=== PATIENT | male | born 1980 | race African-American/Black ===

== ENCOUNTER 2018-02-11 11:03 | Day surgery (SDC) | payer OTHER ==
[2018-02-03 10:23] LABS: HEMATOCRIT 37.6 % (37.9-51.0); MEAN CORPUSCULAR HEMOGLOBIN 27.2 pg (27.0-33.4); MEAN CORPUSCULAR HGB CONC 31.9 g/dL (32.0-36.0); MEAN CORPUSCULAR VOLUME 85 fl (80-97); PLATELET COUNT 214 10^3/uL (150-450); RED CELL DISTRIBUTION WIDTH 15.2 % (11.5-14.0); WHITE BLOOD COUNT 5.2 10^3/uL (4.0-10.5)
[2018-02-03 10:40] LABS: APPEARANCE,URINE CLEAR; BILIRUBIN,URINE NEGATIVE (NEGATIVE); COLOR,URINE YELLOW; GLUCOSE, URINE NEGATIVE (NEGATIVE); KETONES,URINE NEGATIVE (NEGATIVE); LEUKOCYTE ESTERASE,URINE NEGATIVE (NEGATIVE); NITRITE,URINE NEGATIVE (NEGATIVE); PROTEIN,URINE NEGATIVE (NEGATIVE); URINE SPECIFIC GRAVITY 1.019
[2018-02-03 10:41] LABS: ANION GAP 11 (5-19); BLOOD UREA NITROGEN 20 mg/dL (7-20); CALCIUM 9.6 mg/dL (8.4-10.2); CARBON DIOXIDE 29 mmol/L (22-30); CHLORIDE 105 mmol/L (98-107); GLUCOSE 153 mg/dL (75-110); POTASSIUM 4.5 mmol/L (3.6-5.0); SODIUM 144.6 mmol/L (137-145)
--- NOTE | 2018-02-03 10:45 | RADIOLOGY REPORT (SQ) ---
EXAM DESCRIPTION: CHEST PA/LATERAL COMPLETED DATE/TIME: 02/03/2018 9:51 am REASON FOR STUDY: PRE OP COMPARISON: None. EXAM PARAMETERS: NUMBER OF VIEWS: two views TECHNIQUE: Digital Frontal and Lateral radiographic views of the chest acquired. RADIATION DOSE: NA LIMITATIONS: none FINDINGS: LUNGS AND PLEURA: No opacities, masses or pneumothorax. No pleural effusion. MEDIASTINUM AND HILAR STRUCTURES: No masses or contour abnormalities. HEART AND VASCULAR STRUCTURES: Heart normal size. No evidence for failure. BONES: No acute findings. HARDWARE: None in the chest. OTHER: No other significant finding. IMPRESSION: NO SIGNIFICANT RADIOGRAPHIC FINDING IN THE CHEST. TECHNICAL DOCUMENTATION: JOB ID: [id number] [employer]- All Rights Reserved Reading location - IP/workstation name: [email or web address]
--- NOTE | 2018-02-03 14:03 | EKG REPORT ---
SEVERITY:- BORDERLINE ECG - SINUS RHYTHM BORDERLINE T ABNORMALITIES, INFERIOR LEADS : Confirmed by: Hai Sawyer MD 03-Feb-2018 14:02:48
[~2018-02-11 11:03] MED LIST: CEFAZOLIN SODIUM 2 GM in DEXTROSE 5%-WATER 100 ML IV PRN; GLYCOPYRROLATE INJ 0.4 MG/2 ML VIAL ONE; LACTATED RINGERS 1000 ML IV PRN; LIDOCAINE 0.5% INJ-PF (5 MG/ML) 50 ML SDV SUBCUT PRN; NEOSTIGMINE METHYLSULFATE 10 MG/10 ML VIAL ONE; ROCURONIUM BROMIDE INJ 50 MG/5 ML VIAL IV ONE
[2018-02-11] MEDS ORDERED: BUPIVACAINE HCL 0.5 % INJ/PF 30 ML SDV ONE (13:36)
[2018-02-11] MEDS ORDERED: LIDOCAINE 2% INJ-PF (20 MG/ML) 10 ML AMPUL ONE (14:24)
[2018-02-11] MEDS ORDERED: FENTANYL CITRATE INJ/PF 250 MCG/5 ML AMPULE ONE (14:24)
[2018-02-11] MEDS ORDERED: PROPOFOL INJ 200 MG/20 ML VIAL IV ONE (14:25)
[2018-02-11] MEDS ORDERED: MIDAZOLAM 2 MG/2 ML INJ ONE (14:25)
[2018-02-11] MEDS ORDERED: ONDANSETRON HCL INJ/PF 4 MG/2 ML SDV ONE (14:25)
[2018-02-11] MEDS ORDERED: MEPERIDINE HCL/PF INJ 25 MG/1 ML DISP.SYRIN IV PRN (15:05)
[2018-02-11] MEDS ORDERED: DIPHENHYDRAMINE HCL 50 MG/ML VIAL IV PRN (15:05)
[2018-02-11] MEDS ORDERED: PROMETHAZINE HCL INJ 25 MG/1 ML VIAL IV PRN ×2 (15:05)
[2018-02-11] MEDS ORDERED: MORPHINE SULFATE 10 MG/ML INJ IV PRN (15:05)
[2018-02-11] MEDS ORDERED: FENTANYL CITRATE INJ/PF 100 MCG/2 ML AMPUL IV PRN ×3 (15:05)
[2018-02-11] MEDS ORDERED: OXYCODONE-ACETAMINOPHEN 5-325 MG TABLET PO PRN ×4 (15:05→15:44)
--- NOTE | 2018-02-11 15:39 | Operative Report ---
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 A thigh tourniquet was applied to the left lower extremity. Timeout was done identifying the left knee was the correct site. 0.5%t plain Marcaine was injected into anticipated portal sites. The extremity was elevated and the tourniquet was inflated at 300 mmHg. 11 blade was used to establish the anterolateral portal. Scope was introduced. At this point I established my anteromedial portal. Diagnostic scope was done showing the patient had intact patellofemoral compartment and lateral compartment but noticed grade 3 and 4 changes of the medial femoral condyle. Degenerative complex tear of the medial meniscus was noted. At this point combination of a meniscal biter and a 4.0 mm shaver was used to first to my chondroplasty of the trochlear groove. Then I turned my attention to the diffuse wear of the medial femoral condyle and debrided and did abrasion chondroplasty until stable cartilage was noted. I turned my attention to the medial meniscus where I used the meniscal biter and shaver to resect majority of the medial meniscus. Shaver smooth out the edges of the meniscus which gave a good stable wound construct. I this point redirected my camera to the notch and visualized the anterior cruciate ligament PCL and show to be intact. I then placed the extremity in a [id number] and at this point saw some grade 2 changes of the lateral tibial plateau. The meniscus was intact with no noticeable tears. Popliteal hiatus was intact. At this point the fluid of the knee was removed and I proceeded to close the 2 portal sites with 3-0 nylon. Tourniquet was let down. The portal sites were covered with Xeroform 4 x 4 dressing and AVD pad followed by a soft roll. I overwrapped it with an Raffaele bandage. Drapes were cut and removed. Patient was successfully extubated and sent to PACU in stable condition.
--- NOTE | 2018-02-11 15:45 | Discharge Summary ---
Discharge Summary (SDC) - Discharge Final Diagnosis: Left knee partial medial meniscectomy and chondroplasty Date of Surgery: 02/11/18 Discharge Date: 02/11/18 Condition: Good Treatment or Instructions: Patient instructed to follow up in 10-14 days. Patient instructed to keep dressing dry clean and intact for 4 days and then allowed to remove. At that point patient can shower and apply Band-Aids as needed. Patient can weight-bear as tolerated and do range of motion exercises as tolerated. Crutches for support and safety. Can wean crutches once stable on his feet. Patient instructed to call the office if patient develops fevers chills redness and drainage from the surgical sites. Prescriptions: Oxycodone HCl/Acetaminophen [Percocet 5-325 mg Tablet] 1 - 2 tab PO ASDIR PRN # 40 tablet PRN Reason: Referrals: SERGIO NDIAYE MD [Primary Care Provider] - Discharge Diet: As Tolerated Respiratory Treatments at Home: Deep Breathing/Coughing Discharge Activity: No Driving - While taking narcotics, No Lifting/Push/Pulling , Slowly Increase Activity, Walk Frequently Home Care Assistance: None Needed Adaptive Devices on Discharge: Axillary Crutches Report the Following to Your Physician Immediately: Shortness of Breath, Vomiting, Increase in Pain, Fever over 101 Degrees, Unusual Bleeding, Redness, Swelling, Warmth, Increased Soreness, Drainage-Yellow, Drainage-Juarez, Drainage- Green, Drainage-Foul Smelling
[2018-02-11 17:37] VITALS: BP 118/68
== END 2018-02-11 17:25 | disposition home or self-care (01) ==
LOC: OROUT 11:03
PROVIDERS: ATTEND Orthopaedic Surgery
DX: M23.307 Other meniscus derangements, unspecified meniscus, left knee (principal); M25.462 Effusion, left knee; M22.42 Chondromalacia patellae, left knee; E11.9 Type 2 diabetes mellitus without complications; I10 Essential (primary) hypertension; G47.33 Obstructive sleep apnea (adult) (pediatric); Z79.4 Long term (current) use of insulin
CPT/HCPCS: 93005; 36415; 82962; 85027; 80048; 81001; 71046; 93010; 29881; J2250; J3490 ×3; J0690; J3010; J2405; J2704; 1400

== ENCOUNTER → 2018-07-12 | Outpatient (CLI) | payer OTHER ==
--- NOTE | 2018-07-12 16:11 | RADIOLOGY REPORT (SQ) ---
EXAM DESCRIPTION: L SPINE W/FLEX/EXT COMPLETED DATE/TIME: 07/12/2018 3:05 pm REASON FOR STUDY: M54.5 LOW BACK PAIN M54.5 LOW BACK PAIN COMPARISON: Chest films 02/03/2018 NUMBER OF VIEWS: Seven views. TECHNIQUE: AP, lateral, obliques, flexion, extension, and sacral radiographic images acquired. LIMITATIONS: None. FINDINGS: MINERALIZATION: Normal. SEGMENTATION: Chest film 02/03/2018 demonstrates 12 rib-bearing vertebra. There is transitional lumbos acral anatomy, with short ribs/long transverse processes at the L1 level. At the S1 level, there are large transverse processes articulating with the remainder of the sacrum, with bony spurring on the left. Hypoplastic S1-2 disc space. ALIGNMENT: There is 25% anterolisthesis of L5 over S1 related to bilateral spondylolysis. FLEXION/EXTENSION: No instability. VERTEBRAE: Maintained height. No fracture or worrisome bone lesion. DISCS: Disc space loss of height at L5-S1 with vertebral body endplate sclerosis POSTERIOR ELEMENTS: Pedicles and facets are intact. No pars defect or posterior arch defects. HARDWARE: None in the spine. PARASPINAL SOFT TISSUES: Normal. PELVIS: Not in the field of view. SI joints unremarkable OTHER: No other significant finding. IMPRESSION: Transitional anatomy. This puts the most inferior well-developed disc space is L5-S1 wi th bilateral spondylolysis and grade 1 anterolisthesis of L5 over S1. NO INSTABILITY ON FLEXION/EXTENSION. TECHNICAL DOCUMENTATION: JOB ID: [id number] [employer]- All Rights Reserved Reading location - IP/workstation name: [email or web address]
--- NOTE | 2018-07-12 16:17 | RADIOLOGY REPORT (SQ) ---
EXAM DESCRIPTION: CT LUMBAR SPINE WITHOUT COMPLETED DATE/TIME: 07/12/2018 3:15 pm REASON FOR STUDY: M54.5 LOW BACK PAIN M54.5 LOW BACK PAIN COMPARISON: Chest films 02/03/2018 Lumbar spine 7 views 07/12/2018 TECHNIQUE: Axial images acquired through the lumbar spine without intravenous contrast. Images revi ewed with lung, soft tissue and bone windows. Reconstructed coronal and sagittal MPR images reviewed . All images stored on PACS. All CT scanners at this facility use dose modulation, iterative reconstruction, and/or weight based d osing when appropriate to reduce radiation dose to as low as reasonably achievable (ALARA). [facility]: Dose Right [facility]: CareDose [facility]: Dose Right [facility]: Teradose 4D [facility]: [employer] RADIATION DOSE: CT Rad equipment meets quality standard of care and radiation dose reduction techniq ues were employed. CTDIvol: 24.5 mGy. DLP: 805 mGy-cm. mGy. LIMITATIONS: None. FINDINGS: SEGMENTATION: There is transitional anatomy, with a small disc space between the S1 and S2 levels, and a large left S1 transverse process articulating with the upper sacrum with bony spurring . This puts the most inferior well-developed disc space at L5-S1. There is grade 1 anterolisthesis of L5 over S1 at this level from bilateral spondylolysis ALIGNMENT: Grade 1 25% anterolisthesis of L5 over S1 from bilateral spondylolysis. VERTEBRAL BODIES: No fractures. No dislocation. No acute findings. DISCS: T12-L1, L1-2, L2-3, and L3-4 are unremarkable. At L4-5, minimal posterior disc bulging is present with mild bilateral facet and ligament hypertrophy . No significant central or foraminal encroachment. At L5-S1, there is bilateral spondylolysis with grade 1 anterolisthesis of L5 over S1. No bony centr al stenosis. Moderate to high-grade right, and left foraminal stenosis is present with effacement of the fat planes around the exiting L5 nerve roots in the neural foramina. PEDICLES, TRANSVERSE PROCESSES: No acute findings FACETS, POSTERIOR ELEMENTS: Bilateral spondylolysis at L5. Bilateral facet arthropathy at L4-5 and L 5-S1. HARDWARE: None in the spine. VISUALIZED RIBS: No fractures. SOFT TISSUES: No significant or acute finding in adjacent soft tissues. OTHER: No other significant finding. IMPRESSION: 25% anterolisthesis of L5 over S1 related to bilateral spondylolysis. Moderate to high- grade bilateral foraminal narrowing at this level, with effacement of the fat around the exiting L5 n erve roots bilaterally. TECHNICAL DOCUMENTATION: JOB ID: [id number] Quality ID # [id number]: Final reports with documentation of one or more dose reduction techniques (e.g., Au tomated exposure control, adjustment of the mA and/or kV according to patient size, use of iterative reconstruction technique) 2010 [employer]- All Rights Reserved Reading location - IP/workstation name: [email or web address]
== END ==
LOC: RAD 15:40
PROVIDERS: ATTEND Neurological Surgery
DX: M54.5 Low back pain (principal)
CPT/HCPCS: 72114; 72131

== ENCOUNTER 2019-07-18 06:55 | Emergency (ER) | payer OTHER ==
[2019-07-18] MEDS ORDERED: RACEPINEPHRINE HCL 2.25% NEB 0.5 ML AMPUL NEB ONE (07:47)
[2019-07-18] MEDS ORDERED: FAMOTIDINE INJ/PF 20 MG/2 ML SDV IV ONE (07:48)
--- NOTE | 2019-07-18 09:04 | ER Document Report ---
Entered by DAMON PRIEST SCRIBE 07/18/19 0747 Acting as scribe for:UDAY KEITA MD ED Allergic Reaction - General Stated Complaint: POSSIBLE ALLERGIC REACTION Time Seen by Provider: 07/18/19 07:34 Primary Care Provider: [facility] [Provider Group] - 07/18/19 SERGIO NDIAYE MD [NO LOCAL MD] - 07/18/19 Mode of Arrival: Medic Information source: Patient, Emergency Med Personnel Notes: 38-year-old male presents to the emergency department today with complaints of uvula swelling. Patient states he has had this happen twice in the past. Patient states the first time it happened he was taking gabapentin in 2017 so this medication was stopped. The second time it happened he was taking lisinopril in 2018 and this has since been stopped as well. Patient states with both of these episodes he only had uvula swelling. Patient states these 2 episodes happened independently of each other, stating that he was not taking both medications simulataneously when these two episodes occurred. Patient reports that he had telmisartan started on 03/04/2019 for blood pressure control. Patient states he noticed the uvula swelling when he woke up this morning, stating he was fine when he went to bed last night. Patient states it is "not as bad now as it was this morning when he woke up". Patient received Solu- Medrol, Benadryl, and epinephrine in route. Patient states he feels like these medications "got him high" as well as improved his swelling. TRAVEL OUTSIDE OF THE [place] IN LAST 30 DAYS: No - Related Data Allergies/Adverse Reactions: REJI Inhibitors Adverse Reaction (Verified 02/11/18 12:00) Swollen tongue gabapentin Adverse Reaction (Verified 02/11/18 12:00) lisinopril Adverse Reaction (Verified 02/11/18 12:00) Home Medications: metoprolol. hctz. insulin. metformin. claritin Past Medical History - General Information source: Patient - Social History Smoking Status: Never Smoker Cigarette use (# per day): No Chew tobacco use (# tins/day): No Smoking Education Provided: No Frequency of alcohol use: Occasional Drug Abuse: Marijuana Occupation: Retired, disability Lives with: Spouse/Significant other Family History: Reviewed & Not Pertinent Patient has suicidal ideation: No Patient has homicidal ideation: No - Past Medical History Cardiac Medical History: Reports: Hx Hypercholesterolemia, Hx Hypertension Endocrine Medical History: Reports: Hx Diabetes Mellitus Type 2 Musculoskeletal Medical History: Reports Hx Arthritis - L KNEE, BACK Past Surgical History: Reports: Hx Orthopedic Surgery - Left knee medial meniscectomy, bilat rotator cuff, left thumb pins - Immunizations Hx Diphtheria, Pertussis, Tetanus Vaccination: Yes Review of Systems - Review of Systems Constitutional: No symptoms reported EENT: See HPI, Other - uvula swelling Cardiovascular: No symptoms reported Respiratory: No symptoms reported Gastrointestinal: No symptoms reported Genitourinary: No symptoms reported Male Genitourinary: No symptoms reported Musculoskeletal: No symptoms reported Skin: No symptoms reported Hematologic/Lymphatic: No symptoms reported Neurological/Psychological: No symptoms reported -: Yes All other systems reviewed and negative Physical Exam - Vital signs Vitals: Temp 97.9 F 07/18/19 07:01 - Notes Notes: Physical Exam: General: Alert, appears uncomfortable. HEENT: Normocephalic. Atraumatic. PERRL. Extraocular movements intact. Uvula has some mild swelling. It has the appearance that it had been more swollen, and now some of the swelling has gone down so the outer surface has folds in it to suggest that the surface mucosa had been stretched and now is not being stretched. The uvula itself is quite elongated. There is no tongue or p osterior pharyngeal swelling. Neck: Supple. Non-tender. No adenopathy. Respiratory: No respiratory distress. Clear and equal breath sounds bilaterally. Cardiovascular: Regular rate and rhythm. Abdominal: Occasionally dry heaves during exam. Non-tender. No distension. Normal Bowel Sounds. Back: No gross abnormalities. Extremities: Moves all four extremities. Upper extremities: Normal inspection. Normal ROM. Lower extremities: Normal inspection. No edema. Normal ROM. Neurological: Normal cognition. AAOx4. Normal speech. Psychological: Normal affect. Normal Mood. Skin: Warm. Dry. Normal color. Course - Re-evaluation Re-evalutation: 07/18/19 09:28 At this time the uvula edema seems to have gone down considerably. Patient states he feels much better and his speech is clear at this time. It was somewhat muffled and he had difficulty talking initially. 07/18/19 09:57 I discussed with the patient that I am not completely confident that this is angioedema. It would be very unusual to have angioedema involving only the uvula. It would be unusual to see angioedema up improve with steroids, ant ihistamines, and epinephrine. It would also be quite unusual to see angioedema from gabapentin. I think he would benefit from further testing to determine if this truly is angioedema and that he needs to avoid REJI inhibitors and angiotensin receptor blockers. He will be discharged on steroids, and H2 blockers and recommended to follow-up with his primary care today to discuss changing his blood pressure medication until this can be more thoroughly investigated. - Vital Signs Vital signs: Temp Pulse Resp BP Pulse Ox 97.9 F 15 148/82 H 94 07/18/19 07:01 07/18/19 09:01 07/18/19 09:00 07/18/19 09:01 Discharge - Discharge Clinical Impression: Uvular edema Condition: Stable Disposition: HOME, SELF-CARE Additional Instructions: Angioedema Angioedema is an allergic swelling of the soft tissues of the body. The lips and mouth are most commonly involved. Medicication allergy is a common cause, especially REJI inhibitor medicine (used for blood pressure control). Food, even something you've eaten frequently, can cause angioedema. In many cases it's not obvious what caused the swelling. Acute treatment may include adrenalin and antihistamines. If the cause is known, you must avoid this food or medicine in the future. If angioedema affects your air passages, it can be life-threatening. Return at once if you develop shortness of breath, faintness, severe pain, i nability to swallow, or if swelling worsens.swelling worsens. Your exam today is suspicious for angioedema, however the relatively quick resolution of the swelling with steroids, antihistamines, and epinephrine would be unusual. You should follow-up with your primary care provider today to discuss whether or not you should continue taking the telmisartan, or if you should be changed to another blood pressure medication. You will be placed on steroids, histamine type II receptor blockers, and re commendation to take Benadryl as needed if the swelling returns. You should also return to the emergency room if the swelling starts getting worse. RETURN TO THE EMERGENCY ROOM IF ANY NEW OR WORSENING SYMPTOMS. Prescriptions: Prednisone [Deltasone 10 mg Tablet] 10 mg PO ASDIR PRN #21 tablet PRN Reason: Famotidine [Pepcid 20 mg Tablet] 20 mg PO Q4 #10 tablet Referrals: SERGIO DNIAYE MD [NO LOCAL MD] - 07/18/19 [facility] [Provider Group] - 07/18/19 Scribe Attestation: 07/18/19 08:09 I personally performed the services described in the documentation, reviewed and edited the documentation which was dictated to the scribe in my presence, and it accurately records my words and actions. I personally performed the services described in the documentation, reviewed and edited the documentation which was dictated to the scribe in my presence, and it accurately records my words and actions.
[2019-07-18 09:38] VITALS: BP 148/82
== END 2019-07-18 10:11 | disposition home or self-care (01) ==
LOC: ER 06:55
DX: R60.0 Localized edema (principal); Q38.6 Other congenital malformations of mouth; F12.10 Cannabis abuse, uncomplicated; E11.9 Type 2 diabetes mellitus without complications; I10 Essential (primary) hypertension; Z79.899 Other long term (current) drug therapy; Z79.4 Long term (current) use of insulin; Z79.84 Long term (current) use of oral hypoglycemic drugs
CPT/HCPCS: 94640; 99283; 96374; S0028; J3490